=== PATIENT | female | born 1975 | race Caucasian/White ===

== ENCOUNTER 2020-03-06 | Emergency (ER) | payer SELFPAY ==
[~2020-03-06] MED LIST: BENADRYL 50MG C50 MG PO; BENADRYL ITC EX; CIPROFLOXACN500 MG PO; ELIMITE5 % TOP; ERYTHROMYCIN B500 MG PO; FLOVENT HFA110 MCG IN; LORTAB 5 OR; MEDDOSEPAK PO; NO; NO MEDS; OB COMPLET2 PO; PEPCID20 MG PO; POLYTRIM OU; PRENATAL 1 OR; PROAIR HFA IN; ULTRAM50 M1 PO; VENTOLIN HFA IN; ZITHROMAX250 MG PO; ZITHROMAX500 MG PO; ZOFRAN ODT4 MG OR; ZPAK PO
[2020-03-06] MEDS ORDERED: BUSPAR15 M1 PO (20:56)
[2020-03-06] MEDS ORDERED: ZOLOFT25 MG PO (20:58)
[2020-03-06 21:19] LABS: HEMATOCRIT 40.5 % (37.0-47.0); IMMATURE GRANULOCYTES 0.5 % (0.0-5.0); MEAN CELL VOLUME 91.4 fL CALC (80.0-100.0); MEAN CORPUSCULAR HGB 29.3 pG CALC (26.0-32.0); MEAN CORPUSCULAR HGB CONC 32.1 g/dL CAL (32.0-36.0); NEUT# 3.78 thou/uL (2.00-7.15); RED BLOOD COUNT 4.43 mill/uL (4.20-5.60); RED CELL DISTRI WIDTH 12.9 % (11.5-15.5)
[2020-03-06 21:21] LABS: URINE BILIRUBIN - DIPSTICK NEGATIVE (NEGATIVE); URINE BLOOD DIPSTICK NEGATIVE (NEGATIVE); URINE COLOR YELLOW; URINE GLUCOSE - DIPSTICK NEGATIVE (NEGATIVE); URINE KETONE NEGATIVE (NEGATIVE); URINE LEUK ESTERASE NEGATIVE (NEGATIVE); URINE NITRITE - DIPSTICK NEGATIVE (Negative); URINE PROTEIN - DIPSTICK NEGATIVE (NEG-TRACE); URINE SPECIFIC GRAVITY 1.015; URINE UROBILINOGEN - DIPSTICK 0.2 E.U./dL (0.2)
[2020-03-06 21:24] LABS: BARBITURATES NEGATIVE (NEGATIVE); COCAINE NEGATIVE (NEGATIVE); METHADONE NEGATIVE (NEGATIVE); OXCYCODONE NEGATIVE (NEGATIVE); TETRAHYDROCANNABIONOL NEGATIVE (NEGATIVE); TRICYLIC ANTIDEPRESSANTS NEGATIVE (NEGATIVE)
[2020-03-06 21:37] LABS: AMYLASE 128 u/l (30-110); BILIRUBIN, TOTAL 0.3 mg/dL (0.0-1.4); BUN 14 mg/dL (7-17); BUN/CREATININE RATIO 21 (12-20 (CALC)); CHLORIDE 101 mmol/l (95-108); CREATININE 0.7 mg/dL (0.5-1.0); GFR > 60 ML/MIN (>=60 (CALC)); GFR FOR AFR.AMER. > 60 ML/MIN (>=60 (CALC)); LIPASE 117 u/l (23-300); POTASSIUM 4.9 mmol/l (3.5-5.1); SGOT/AST 21 u/l (14-36); SODIUM 136 mmol/l (137-146); TOTAL PROTEIN 7.5 g/dL (6.3-8.2)
[2020-03-06 21:41] LABS: ALBUMIN 4.1 g/dL (3.2-5.0); ALKALINE PHOSPHATASE 80 u/l (38-126); ANION GAP 11 (6-22 (CALC)); CARBON DIOXIDE 29 mmol/l (22-30)
[2020-03-06 21:48] LABS: MYOGLOBIN 18 ng/mL (0 - 62)
[2020-03-07] MEDS ORDERED: NAPROXEN500 MG PO (00:11)
== END 2020-03-07 00:14 | disposition home or self-care (01) | DRG 313 ==
PROVIDERS: Emergency Medicine
DX: R07.89 Other chest pain (principal); F41.9 Anxiety disorder, unspecified; F17.210 Nicotine dependence, cigarettes, uncomplicated; T43.506A Underdosing of unspecified antipsychotics and neuroleptics, initial encounter; Z91.128 Patient's intentional underdosing of medication regimen for other reason